=== PATIENT | male | born 1940 | race Hispanic/Latino ===

== ENCOUNTER 2018-02-12 18:16 | Emergency (ER) | payer OTHER ==
[2018-02-12] MEDS ORDERED: LIDOCAINE 5% TOPICAL PATCH TP ONE (19:18)
[2018-02-12 19:38] LABS: APPEARANCE,URINE Clear (CLEAR); BILIRUBIN,URINE Negative (NEGATIVE); COLOR,URINE Yellow (YELLOW); GLUCOSE, URINE (UA) Negative (NEGATIVE); KETONES,URINE Negative (NEGATIVE); LEUKOCYTE ESTERASE ,URINE Negative (NEGATIVE); NITRATE,URINE Negative (NEGATIVE); OCCULT BLOOD,URINE Trace (NEGATIVE); PROTEIN,URINE 300 (NEGATIVE)
[2018-02-12 19:55] LABS: BACTERIA,URINE None Seen /HPF (None Seen); MUCUS,URINE Few LPF (None Seen); RBC,URINE None Seen /HPF (0-1); SQUAMOUS EPITHELIAL CELL,UR 0-2 /HPF (0-2); WBC,URINE None Seen /HPF (0-1)
== END 2018-02-12 20:41 | disposition home or self-care (01) ==
LOC: EDH 18:16
DX: M54.42 Lumbago with sciatica, left side (principal); M48.061 Spinal stenosis, lumbar region without neurogenic claudication; E11.9 Type 2 diabetes mellitus without complications; I10 Essential (primary) hypertension; E07.9 Disorder of thyroid, unspecified; Z98.890 Other specified postprocedural states
CPT/HCPCS: 72131; 81001

== ENCOUNTER 2018-11-03 14:27 | Emergency (ER) | payer OTHER ==
[2018-11-03] MEDS ORDERED: KETOROLAC TROMETHAMINE 60 MG/2 ML VIAL ONE (15:14)
== END 2018-11-03 16:04 | disposition home or self-care (01) ==
LOC: EDH 14:27
DX: S39.012A Strain of muscle, fascia and tendon of lower back, initial encounter (principal); I10 Essential (primary) hypertension; E11.9 Type 2 diabetes mellitus without complications; E07.9 Disorder of thyroid, unspecified; Z98.890 Other specified postprocedural states; Z87.891 Personal history of nicotine dependence; X58.XXXA Exposure to other specified factors, initial encounter; Y93.89 Activity, other specified; Y92.89 Other specified places as the place of occurrence of the external cause; Y99.8 Other external cause status
CPT/HCPCS: 96372; 99283; J1885

== ENCOUNTER → 2022-11-12 | Outpatient (CLI) | payer OTHER ==
[2022-11-12 14:01] LABS: BASOPHILS % (AUTO) 0.6 % (0.0-5.0); HEMATOCRIT 36.3 % (42-54); LYMPHOCYTES % (AUTO) 19.2 % (21.0-51.0); MEAN CORPUSCULAR HGB CONC 33.3 g/dL (32.0-36.0); MONOCYTES % (AUTO) 8.3 % (3.0-13.0); NEUTROPHILS % (AUTO) 65.6 % (40.0-77.0); PLATELET COUNT (AUTO) 234 K/uL (130-400); RED BLOOD CELL COUNT(AUTO) 3.78 MIL/uL (4.50-6.20); RED CELL DISTRIBUTION WIDTH 12.5 % (11.0-15.5); WHITE BLOOD COUNT (AUTO) 6.6 K/uL (4.8-10.8)
[2022-11-12 14:28] LABS: HEMOGLOBIN A1C 5.4 % (4.0-6.0)
[2022-11-12 14:39] LABS: ALBUMIN 3.7 g/dL (3.5-5.0); CREATININE 2.4 mg/dL (0.5-1.5); POTASSIUM 4.1 mmol/L (3.5-5.1); T4 (THYROXINE) 8.7 ug/dL (4.7-13.3); THYROID STIMULATING HORMONE 3.8 uIU/mL (0.36-3.74)
== END | disposition home or self-care (01) ==
LOC: LAB 10:00
PROVIDERS: ATTEND Internal Medicine Cardiovascular Disease
DX: I73.9 Peripheral vascular disease, unspecified (principal); R60.9 Edema, unspecified
CPT/HCPCS: 36415; 80053; 80061; 83036; 83880; 84436; 84443; 84479; 85025

== ENCOUNTER → 2022-11-26 | Outpatient (CLI) | payer OTHER | END | disposition home or self-care (01) | LOC: SHCH 11:33 | PROVIDERS: ATTEND Internal Medicine Cardiovascular Disease | DX: I35.8 Other nonrheumatic aortic valve disorders (principal); I51.7 Cardiomegaly; I73.9 Peripheral vascular disease, unspecified; E11.51 Type 2 diabetes mellitus with diabetic peripheral angiopathy without gangrene; E78.5 Hyperlipidemia, unspecified; R60.9 Edema, unspecified | CPT/HCPCS: 93306 ==

== ENCOUNTER → 2022-11-30 | Outpatient (CLI) | payer OTHER ==
[~2022-11-30] MED LIST: REGADENOSON 0.4 MG/5 ML PF SYG IVP ONE
== END | disposition home or self-care (01) ==
LOC: SHCH 08:45
PROVIDERS: ATTEND Internal Medicine Cardiovascular Disease
DX: I13.10 Hypertensive heart and chronic kidney disease without heart failure, with stage 1 through stage 4 chronic kidney disease, or unspecified chronic kidney disease (principal); E11.22 Type 2 diabetes mellitus with diabetic chronic kidney disease; N18.30 Chronic kidney disease, stage 3 unspecified; I73.9 Peripheral vascular disease, unspecified; E11.40 Type 2 diabetes mellitus with diabetic neuropathy, unspecified; E11.51 Type 2 diabetes mellitus with diabetic peripheral angiopathy without gangrene; E78.5 Hyperlipidemia, unspecified; R60.9 Edema, unspecified; Z79.82 Long term (current) use of aspirin; Z79.84 Long term (current) use of oral hypoglycemic drugs; Z79.899 Other long term (current) drug therapy
CPT/HCPCS: 78452; 96374; 93017; J2785; A9500 ×2

== ENCOUNTER → 2023-02-02 | Outpatient (CLI) | payer OTHER | END | disposition home or self-care (01) | LOC: SHCH 12:57 | PROVIDERS: ATTEND Internal Medicine Cardiovascular Disease | DX: I73.9 Peripheral vascular disease, unspecified (principal); I87.2 Venous insufficiency (chronic) (peripheral) | CPT/HCPCS: 93970 ==

== ENCOUNTER 2024-11-05 10:56 | Day surgery (SDC) | payer OTHER ==
[~2024-11-05] VITALS: Ht 157.5 cm; Wt 66.2 kg
[2024-11-05 12:14] VITALS: BP 187/83; PULSE 86; RESP 18; TEMP 97.6
[2024-11-05] MEDS ORDERED: CARV6.25 PO (12:29)
[2024-11-05] MEDS ORDERED: HEMOCYTE PO (12:29)
[2024-11-05] MEDS ORDERED: FOLI0.8C PO (12:29)
[2024-11-05] MEDS ORDERED: ASPI-1197 PO (12:29)
[2024-11-05] MEDS ORDERED: ISOS10TA2 PO (12:29)
[2024-11-05] MEDS ORDERED: AZIT250T9 PO (12:29)
[2024-11-05] MEDS ORDERED: LEVO50CA4 PO (12:29)
[2024-11-05] MEDS ORDERED: TERA5CAP4 PO (12:29)
[2024-11-05] MEDS ORDERED: CHLO25TA3 PO (12:29)
[2024-11-05] MEDS ORDERED: PANT40TA54 PO (12:29)
--- NOTE | 2024-11-05 13:19 | EKG ---
[facility] Test Date: 2024-11-05 Test Time: 13:13:16 Pat Name: OLIVE PARR Department: [facility] Room: [facility] Gender: M Film Touch Up Inspector: [id number] : 1940 Requested By: SHELIA NUNEZ Order Number: [id number] Reading MD: John Paul Todd Measurements Intervals [place] Rate: 87 P: 3 OK: 102 QRS: 11 QRSD: 80 T: 56 QT: 392 QTc: 467 Interpretive Statements Sinus rhythm Atrial premature complex Compared to ECG 05/06/2015 18:58:30 Atrial premature complex(es) now present Sinus bradycardia no longer present Electronically Signed On 11-05-2024 17:00:27 CDT by John Paul Todd Please click the below link to view image of tracing.
[2024-11-05 13:27] LABS: BASOPHILS # (AUTO) 0.02 K/uL (0.00-0.20); BASOPHILS % (AUTO) 0.2 % (0.0-5.0); EOSINOPHILS # (AUTO) 0.09 K/uL (0.00-0.70); EOSINOPHILS % (AUTO) 1.1 % (0.0-8.0); IMMATURE GRANULOCYTE ABSOLUTE 0.11 K/uL (0-1); LYMPHOCYTES # (AUTO) 0.8 K/uL (1.0-4.8); MEAN CORPUSCULAR HGB CONC 31.4 g/dL (32.0-36.0); MONOCYTES # (AUTO) 0.5 K/uL (0.1-1.0); MONOCYTES % (AUTO) 6.4 % (3.0-13.0); NEUTROPHILS # (AUTO) 6.8 K/uL (1.8-7.7); PLATELET COUNT (AUTO) 217 K/uL (130-400); RED CELL DISTRIBUTION WIDTH 17.2 % (11.0-15.5); WHITE BLOOD COUNT (AUTO) 8.4 K/uL (4.8-10.8)
[2024-11-05 13:34] LABS: CREATININE 3.7 mg/dL (0.5-1.3); HEMATOCRIT 20.4 % (42-54); POTASSIUM 4.8 mmol/L (3.5-5.1)
[2024-11-05 13:39] LABS: ALBUMIN 2.7 g/dL (3.5-5.0); BILIRUBIN,TOTAL 0.3 mg/dL (0.2-1.0); TOTAL PROTEIN, SERUM 5.7 g/dL (6.0-8.3)
--- NOTE | 2024-11-05 13:56 | NUR ---
PER DAUGHTER, PATIENT GETS SOB WHEN TAKING A FEW STEPS. JENSEN GEORGE CRNA ORDERED STAT CBC, CMP AND EKG. H&H 6.4/20.4. DR DEE NOTIFIED AND ENZO JANSEN, PATIENT TRANSFERRED TO ER ORDERED.
== END 2024-11-05 23:57 | disposition home or self-care (01) ==
LOC: SUH 10:56 → DAH 11:04 → SUH 14:00 → DAH 14:00 → SUH 23:57
PROVIDERS: ATTEND Internal Medicine Gastroenterology
DX: I49.1 Atrial premature depolarization (principal); K92.1 Melena; K63.81 Dieulafoy lesion of intestine; D50.0 Iron deficiency anemia secondary to blood loss (chronic); R00.1 Bradycardia, unspecified
CPT/HCPCS: 36415; 80053; 82948; 85025; 93005

== ENCOUNTER 2024-11-05 13:56 | Emergency (ER) | payer OTHER ==
[~2024-11-05] VITALS: Ht 162.6 cm; Wt 63.5 kg
[~2024-11-05 13:56] MED LIST changes: +ASPI-1197 PO; +AZIT250T9 PO; +CARV6.25 PO; +CHLO25TA3 PO; +FOLI0.8C PO; +HEMOCYTE PO; +ISOS10TA2 PO; +LEVO50CA4 PO; +PANT40TA54 PO; -REGADENOSON 0.4 MG/5 ML PF SYG IVP ONE; +TERA5CAP4 PO
--- NOTE | 2024-11-05 16:09 | ERN ---
General Chief Complaint: Abnormal Labs Stated Complaint: ABNORMAL LABS Time Seen by MD: 14:06 History of Present Illness Initial Comments 84-year-old male brought down from the GI lab for anemia. Patient has a history of hypertension, diabetes, arthritis. History of iron deficiency anemia. He was previously admitted at [facility] for a week or so due to infection did not anemia and acute gastritis. He was had recent bloody stools. Today he was scheduled for an out patient push enteroscopy, but was found to be anemic with a hemoglobin of 6.4 prior to the procedure. Patient was sent to the ER for blood transfusion and admission, and he can retry the push enteroscopy tomorrow. Patient's family is requesting the patient returned to [facility]. The only recent that they showed up here today was for a scheduling outpatient procedure, they were not expect in the admission. Since there was an admission they prefer it to be at [facility]. Patient has previous studies include an EGD on 10/06/24 which showed duodenitis small hiatal hernia. Also had a colonoscopy and a PillCam earlier this month. Allergies: Coded Allergies: No Known Drug Allergies (Unverified Allergy, Unknown, 11/05/24) Home Meds Reported Medications [Hemocyte] No Conflict Check, CAP PO HS 11/05/24 Azithromycin (Azithromycin) 250 Mg Tablet, 1 TAB PO AM for 5 Days, #6 TAB 0 Refills 2 the first day followed by 1 for days 2-5 11/05/24 Levothyroxine Sodium (Levothyroxine) 50 Mcg Capsule, 1 CAP PO DAILY for 30 Days, #30 CAP 0 Refills 11/05/24 Carvedilol (Carvedilol) 6.25 Mg Tablet, 1 TAB PO BID for 30 Days, #60 TAB 0 Refills 11/05/24 Folic Acid (Folic Acid) 0.8 Mg Capsule, 1 CAP PO DAILY for 30 Days, #30 CAP 0 Refills 11/05/24 Pantoprazole Sodium (Pantoprazole Sodium) 40 Mg Tablet.dr, 1 TAB PO DAILY for 30 Days, #30 TAB 0 Refills 11/05/24 Terazosin HCl (Terazosin HCl) 5 Mg Capsule, 1 CAP PO HS for 30 Days, #30 CAP 0 Refills 11/05/24 Aspirin (Aspirin) 81 Mg Tab.chew, 1 TAB PO DAILY for 30 Days, #30 TAB 0 Refills 11/05/24 Chlorthalidone (Chlorthalidone) 25 Mg Tablet, 1 TAB PO DAILY for 30 Days, #30 TAB 0 Refills 11/05/24 Isosorbide Dinitrate (Isosorbide Dinitrate) 10 Mg Tablet, 1 TAB PO TID for 30 Days, #90 TAB 0 Refills 11/05/24 Past Medical History Past Medical History: Diabetes-Type II, High Cholesterol, Hypertension Past Surgical History: None ROS Dictation CONSTITUTIONAL: No chills, no fever, no weakness, no diaphoresis, no malaise. HEAD/FACE: No signs of trauma. EENT: No eye pain, no blurred vision, no tearing, no double vision, no ear pain, no ear discharge, no nose pain, no nasal congestion, no throat pain, no throat swelling, no mouth pain. RESPIRATORY: No cough, no orthopnea, no SOB, no stridor, no wheezing. CARDIOVASCULAR: No chest pain, no edema, no palpitations, no syncope. GASTROINTESTINAL/ABDOMINAL: No abdominal pain, no constipation, no diarrhea, no nausea, no vomiting. GENITOURINARY: No abnormal discharge, no dysuria, no frequent urination, no hematuria. No complaints of pain in the genitals. MUSCULOSKELETAL: No back pain, no gout, no joint pain, no joint swelling, no muscle pain, no muscle stiffness, no neck pain. INTEGUMENTARY: No change in color, no change in hair/nails, no dryness, no lesion, no lumps, no rash. NEUROLOGICAL/PSYCH: No anxiety, not depressed, no emotional problem, no headache, no numbness, no pre-existing deficit, no history of seizures, no tremors, no weakness. HEMATOLOGIC/LYMPHATIC: Not anemic, no history of blood clots, no apparent bleeding, no bruising, glands not swollen. All Systems Negative, Except as Noted. Physical Exam Physical Exam Dictation VITAL SIGNS: Reviewed. GENERAL APPEARANCE: Alert, oriented x3, no acute distress. HEAD AND FACE: Non-traumatic. EYES: PERRL, pink conjunctivas, eyelid no trauma, anterior chamber clear. EARS: Pinnas intact and no signs of trauma or erythema. Ear canals clear and no discharge. TMs no erythema. NOSE: No discharge, no bleeding. OROPHARYNX: Mouth normal, teeth no caries, tongue pink. Pharynx clear, no erythema. Tonsils no exudates, no abscesses noted. Mucous membrane moist. NECK: Supple, non-tender, no thyromegaly, no masses, no JVD, no bruits. BREAST: Deferred. CHEST: No tenderness, no crepitus, no paradoxical movement, no retractions. LUNGS: Clear, well-ventilated, symmetric, no rales, no wheezing, no rhonchi, no stridor, good breath sounds bilaterally. HEART: Regular rate, regular rhythm, no murmur, no gallops. VASCULAR: No peripheral edema. ABDOMEN: Soft, positive bowel sounds, nondistended, no guarding, nontender, no rebound, no masses no hepatomegaly, no splenomegaly, no Barone's sign, no hernias. RECTAL: Deferred. GENITAL: Deferred. NEUROLOGICAL: Normal speech, gross motor function intact, gross sensory function intact. MUSCULOSKELETAL: Neck nontender, full range of motion, back nontender, full range of motion. EXTREMITIES: Nontender, full range of motion. SKIN: Color pink, dry, no turgor, no rash, no lacerations, no abrasions, no contusions. LYMPHATICS: Deferred. MDM CC: Anemia requiring blood transfusion Historian: Patient Comorbidities: Advanced age, hypertension, diabetes, arthritis, previous GI bleed Limitations by social determinants of health: None Differential diagnosis: GI bleed, anemia, other. Vital signs are stable, they remained stable while in the emergency department here. Patient was lab work with him. He had preop labs drawn on 11/05/2024. Hemoglobin 6.4, hematocrit 20.4. Macrocytic MCV of 102. Platelets are stable. Patient also has a chemistry panel which was unremarkable and liver enzymes which were normal. EKG: Sinus rhythm rate of 87 normal axis early R-wave progression intervals are stable no STEMI. Independently interpreted by me. Treatment in ER. 1 unit PRBC ordered and given. Patient's family requested transfer to [facility]. That is where all his care was just recently, we will try to transfer over there for continuation of care. I spoke with the hospitalist at [facility]. He accepts the patient. Patient was transferred in stable condition after 1 unit of blood here. We will continue with his GI workup at [facility]. ED Course Orders Procedure Category Date Status Time Rbc-Active Bleeding BBK 11/05/24 Complete 14:07 Consent For CPOE 11/05/24 Transmitted Transfusion 14:07 Type And Screen BBK 11/05/24 Complete 14:07 Hydralazine 20mg Inj PHA 11/05/24 Complete (Apresoline 20mg In 18:00 Diphenhydramine Hcl PHA 11/05/24 Complete (Benadryl Inj) 19:00 Labetalol 20mg Syg PHA 11/05/24 Complete (Trandate 20mg Syg) 23:30 Current Medications Medications (Trade) Dose Ordered Sig/[place] Route PRN Reason Start Time Stop Time Status Last Admin Dose Admin Diphenhydramine HCl (BENAdryl INJ) 25 mg ONCE ONCE IV 11/05/24 19:00 11/05/24 19:01 DC 11/05/24 18:54 Hydralazine HCl (APRESOLine 20MG INJ) 10 mg ONCE IV 11/05/24 18:00 11/05/24 22:00 DC 11/05/24 17:36 Labetalol HCl (TRANdate 20MG SYG) 10 mg ONCE ONCE IV 11/05/24 23:30 11/05/24 23:31 DC 11/05/24 23:45 Vital Signs Date Time Temp Pulse Resp B/P (MAP) Pulse Ox O2 Delivery O2 Flow Rate FiO2 11/05/24 23:54 82 18 184/82 99 Nasal Cannula* 2 11/05/24 23:45 82 189/84 11/05/24 22:42 80 18 184/84 99 Nasal Cannula* 2 11/05/24 21:04 89 18 172/83 99 Nasal Cannula* 2 11/05/24 19:33 92 18 184/86 100 Nasal Cannula* 2 11/05/24 18:39 98.2 96 16 176/82 100 Nasal Cannula* 2 11/05/24 18:24 98.4 92 18 194/85 100 Nasal Cannula* 2 11/05/24 16:41 98.4 84 14 192/81 99 Room Air* 0 11/05/24 14:12 98.2 85 12 188/84 98 Room Air* 0 11/05/24 14:12 98.4 80 18 188/84 98 Room Air* 0 11/05/24 14:09 98.4 80 18 188/84 98 DX & DISP Disposition: Transfer Departure Impression: Primary Impression: Anemia requiring transfusions Additional Impression: GI bleed Critical Time: 30 minutes (Critical Care Procedure NoteAuthorized and Performed by: meTotal critical care time: Approximately 36 minutesDue to a high probability of clinically significant, life threatening deterioration, the patient required my highest level of preparedness to intervene emergently and I personally spent this critical care time directly and personally managing the patient. This critical care time included obtaining a history; examining the patient; pulse oximetry; ordering and review of studies; arranging urgent treatment with development of a management plan; evaluation of patient's response to treatment; frequent reassessment; and, discussions with other provi ders.This critical care time was performed to assess and manage the high probability of imminent, life-threatening deterioration that could result in multi-organ failure. It was exclusive of separately billable procedures and treating other patients and teaching time.Please see MDM section and the rest of the note for further information on patient assessment and treatment.) Condition: Stable Referrals: JADON ROMERO MD (PCP) RONDA GONZALEZ DO Nov 05, 2024 16:09
--- NOTE | 2024-11-05 16:09 | NUR ---
SPOKE WITH GIO AT [facility]. TRANSFER REQUEST INITIATED.
--- NOTE | 2024-11-05 16:46 | NUR ---
NO CALL FROM LAB FOR BLOOD STATUS IF READY, CHECKED TRANSFUSIONS TRACKER STATUS IS NOW READY, BLOOD OVER DUE. NO CALL FROM LAB.
[2024-11-05] MEDS: hydrALAZine 20MG/ML VIAL IV SCH (17:36)
[2024-11-05 18:39] VITALS: TEMP 98.3
[2024-11-05] MEDS: DiphenhydrAMINE HCL 50 MG/ML VIAL IV ONE (18:54)
--- NOTE | 2024-11-05 21:14 | NUR ---
WATING FOR EMS TRANSPORT. PATIENT RESTING.
[2024-11-05] MEDS: LAbetaLOL 20MG SYG IV ONE (23:45)
--- NOTE | 2024-11-05 23:53 | NUR ---
EMS PRESENT TO TRANSPORT PATIENT.
[2024-11-05 23:54] VITALS: BP 184/82; PULSE 82; RESP 18; O2SAT 99
--- NOTE | 2024-11-05 23:57 | NUR ---
DAUGHTER AT BEDSIDE.
== END 2024-11-05 23:57 | disposition short-term general hospital (02) ==
LOC: EDH 13:56
DX: D64.9 Anemia, unspecified (principal); K92.2 Gastrointestinal hemorrhage, unspecified; E11.9 Type 2 diabetes mellitus without complications; E78.00 Pure hypercholesterolemia, unspecified; I10 Essential (primary) hypertension; M19.90 Unspecified osteoarthritis, unspecified site; Z79.82 Long term (current) use of aspirin; Z79.890 Hormone replacement therapy; Z79.899 Other long term (current) drug therapy
CPT/HCPCS: 99291; 36430; 96374; 96375; 86850; 86900; 86901; 86923; 36415; P9016; J1200; J0360